=== PATIENT | male | born 1980 ===

== ENCOUNTER 2016-12-21 15:58 | Observation (INO) | payer OTHER ==
[2016-12-21] MEDS ORDERED: Sodium Chloride 0.9% 1,000 ML IV STA (16:14)
--- NOTE | 2016-12-21 16:21 | ED PDOC ---
HPI: Psych/Substance Abuse Time Seen by Provider: 12/21/16 16:04 Chief Complaint (Nursing): Psychiatric Evaluation Chief Complaint (Provider): Psychiatric Evaluation History Per: Family History/Exam Limitations: other (Unresponsive) Current Symptoms Are (Timing): Still Present Additional Complaint(s): 36 y/o male presents to the emergency department via ambulance after patient was found unresponsive. Patient was noted to have an argument with ex- girlfriend. Pill bottles with Aspirin and Xanax were found by patient although unclear if there was any ingestion. Patient was last seen at 04 am today walking dog. Of note, patient has history of previous suicide attempt. Past Medical History Reviewed: Historical Data, Nursing Documentation, Vital Signs Vital Signs: Last Vital Signs Temp 97.4 F L 12/21/16 15:59 Pulse 67 12/21/16 15:59 Resp 16 12/21/16 15:59 BP 122/85 12/21/16 15:59 Pulse Ox 99 12/21/16 15:59 - Medical History PMH: Hypercholesterolemia (no meds) Denies: Chronic Kidney Disease - Family History Family History: States: Unknown Family Hx - Immunization History Hx Influenza Vaccination: Yes (Last completed 1 year ago) - Home Medications Home Medications: Ambulatory Orders Medication Instructions Recorded Ciprofloxacin [Cipro] 500 mg PO Q12 #14 tab 02/20/15 Docusate Sodium [Colace] 100 mg PO BID #60 sgl 02/20/15 Metronidazole [Flagyl] 500 mg PO Q8 #14 tab 02/20/15 Sulfamethoxazole/Trimethoprim 1 tab PO BID #20 tab 09/20/15 [Bactrim DS 800 mg-160 mg] Albuterol HFA [Ventolin HFA 90 1 puff IH ASDIR #1 unit 03/23/16 mcg/actuation (8 g)] Azithromycin [Zithromax] 250 mg PO DAILY #6 tab 03/23/16 Benzonatate 200 mg PO TID PRN #20 capsule 03/23/16 - Allergies Allergies/Adverse Reactions: Allergies Allergy/AdvReac Type Severity Reaction Status Date / Time amoxicillin Allergy ANGIOEDEMA Verified 03/23/16 14:48 Penicillins Allergy ANGIOEDEMA Verified 03/23/16 14:48 Review of Systems Review Of Systems: ROS cannot be obtained secondary to pt's inabilty to answer questions. Physical Exam - Reviewed Nursing Documentation Reviewed: Yes Vital Signs Reviewed: Yes - Physical Exam Appears: Positive for: No Acute Distress Head Exam: Positive for: ATRAUMATIC, NORMAL INSPECTION, NORMOCEPHALIC Skin: Positive for: Normal Color, Warm, Dry Eye Exam: Positive for: PERRL, Other (Pt not responding to commands and unable to be EOMI) Neck: Positive for: Normal, Painless ROM, Supple Cardiovascular/Chest: Positive for: Regular Rate, Rhythm. Negative for: Murmur Respiratory: Positive for: Normal Breath Sounds. Negative for: Accessory Muscle Use, Respiratory Distress Gastrointestinal/Abdominal: Positive for: Normal Exam, Soft. Negative for: Tenderness Extremity: Positive for: Normal ROM (No sign of needle ramírez), Other (Tone equal b/l to the upper and lower extrm) Neurologic/Psych: Positive for: Other (Responsive to painful stimuli but not to verbal stimuli. Does not follow commands. ). Negative for: Alert, Oriented - Laboratory Results Result Diagrams: 12/21/16 16:43 12/21/16 16:43 - ECG O2 Sat by Pulse Oximetry: 99 (RA) Pulse Ox Interpretation: Normal Medical Decision Making Medical Decision Making: Time: 16:13 Initial impression: Unresponsive s/p possible ETOH or pill ingestion Initial plan: --Head w/o contrast CT --EKG --Acetaminophen --Alcohol Serum --CMP --Drug Screen, Urine --Salicylate --Urine DIP --CBC w/ diff --Prothrombin --Chest x-ray --Sodium Chloride 1L IV 200 mls/hr --AccuCheck --Dextrose 50 ml --Reevaluation Time: 17:05 Chest X-Ray FINDINGS: LUNGS: Poor inspiration with low lung volumes, crowded bronchovascular markings and mild bibasilar atelectasis. . PLEURA: No significant pleural effusion identified, no pneumothorax apparent. CARDIOVASCULAR: Heart size appears enlarged though this may in part be due to poor inspiration low lung volumes. OSSEOUS STRUCTURES: No significant abnormalities. VISUALIZED UPPER ABDOMEN: Normal. OTHER FINDINGS: None. IMPRESSION: Poor inspiration with low lung volumes, crowded bronchovascular markings and mild bibasilar atelectasis. . Time: 17:07 CT Head: FINDINGS: HEMORRHAGE: No acute parenchymal, subarachnoid or extra-axial hemorrhage. BRAIN: No mass effect or edema. No atrophy or chronic microvascular ischemic changes. VENTRICLES: Unremarkable. No hydrocephalus. CALVARIUM: Unremarkable. Question minor parasagittal occipital parietal scalp swelling. PARANASAL SINUSES: Unremarkable as visualized. No significant inflammatory changes. MASTOID AIR CELLS: Unremarkable as visualized. No inflammatory changes. OTHER FINDINGS: None. IMPRESSION: Normal CT of the Head. Time: 17:19 --Patient given Narcan 2 mg IV Scribe Attestation: Documented by Annabelle Kwong and Akiko Flowers, acting as scribe for Martin Jose MD. Provider Scribe Attestation: All medical record entries made by the Scribe were at my direction and personally dictated by me. I have reviewed the chart and agree that the record accurately reflects my personal performance of the history, physical exam, medical decision making, and the department course for this patient. I have also personally directed, reviewed, and agree with the discharge instructions and disposition. Disposition - Clinical Impression Clinical Impression: Benzodiazepine overdose - Patient ED Disposition Is Patient to be Admitted: Yes - Disposition Disposition Time: 18:12 Condition: FAIR Forms: [employer] ([place]) - Pt Status Changed To: Hospital Disposition Of: Observation - POA Present On Arrival: None
[2016-12-21] MEDS: Dextrose 50% SYRINGE Inj (50 ml) IVP ONE ×2 (16:30→16:40)
[2016-12-21] MEDS ORDERED: Dextrose 50% SYRINGE Inj (50 ml) ONE (16:47)
[2016-12-21 16:58] LABS: BASO % 0.5 % (0.0-2.0); EOS # 0.1 K/uL (0.0-0.7); EOS % 1.4 % (0.0-4.0); HEMATOCRIT 55.9 % (35.0-51.0); LYMPH # 1.2 K/uL (1.0-4.3); LYMPH % 26.8 % (20.0-40.0); MEAN CELL VOLUME 97.5 fl (80.0-94.0); MEAN CORPUSCULAR HEMOGLOBIN 32.7 pg (27.0-31.0); MEAN CORPUSCULAR HGB CONC 33.6 g/dL (33.0-37.0); MEAN PLATELET VOLUME 9.9 fl (7.2-11.7); MONO # 0.5 K/uL (0.0-0.8); MONO % 11.6 % (0.0-10.0); NEUT # 2.6 K/uL (1.8-7.0); NEUT % 59.7 % (50.0-75.0); NRBC % 0.3 % (0.0-0.0); RED CELL DISTRIBUTION WIDTH 13.3 % (11.5-14.5); WHITE BLOOD COUNT 4.4 K/uL (4.8-10.8)
--- NOTE | 2016-12-21 17:06 | RAD ---
HISTORY: cough COMPARISON: Comparison made with prior chest radiograph 11/21/2015 FINDINGS: LUNGS: Poor inspiration with low lung volumes, crowded bronchovascular markings and mild bibasilar atelectasis. . PLEURA: No significant pleural effusion identified, no pneumothorax apparent. CARDIOVASCULAR: Heart size appears enlarged though this may in part be due to poor inspiration low lung volumes. OSSEOUS STRUCTURES: No significant abnormalities. VISUALIZED UPPER ABDOMEN: Normal. OTHER FINDINGS: None. IMPRESSION: Poor inspiration with low lung volumes, crowded bronchovascular markings and mild bibasilar atelectasis. .
--- NOTE | 2016-12-21 17:09 | CT ---
PROCEDURE: CT scan of the brain dated 12/21/2016 HISTORY: r/o bleed COMPARISON: None available. TECHNIQUE: Axial computed tomography images were obtained through the head/brain without intravenous contrast. Radiation dose: Total exam DLP = 1411.32 mGy-cm. This CT exam was performed using one or more of the following dose reduction techniques: Automated exposure control, adjustment of the mA and/or kV according to patient size, and/or use of iterative reconstruction technique. FINDINGS: HEMORRHAGE: No acute parenchymal, subarachnoid or extra-axial hemorrhage. BRAIN: No mass effect or edema. No atrophy or chronic microvascular ischemic changes. VENTRICLES: Unremarkable. No hydrocephalus. CALVARIUM: Unremarkable. Question minor parasagittal occipital parietal scalp swelling. PARANASAL SINUSES: Unremarkable as visualized. No significant inflammatory changes. MASTOID AIR CELLS: Unremarkable as visualized. No inflammatory changes. OTHER FINDINGS: None. IMPRESSION: Normal CT of the Head.
[2016-12-21 17:11] LABS: ALCOHOL SERUM < 10 mg/dl (0-10); ALKALINE PHOSPHATASE 49 U/L (38-126); ALT/SGPT 28 U/L (21-72); AST/SGOT 19 U/L (17-59); BILIRUBIN,TOTAL 0.5 mg/dl (0.2-1.3); BLOOD UREA NITROGEN 6 mg/dl (9-20); CALCIUM 10.2 mg/dL (8.4-10.2); CARBON DIOXIDE 22 mmol/L (22-30); CHLORIDE 104 mmol/L (98-107); GFR AFRICAN-AMERICAN > 60; GLUCOSE,RANDOM 95 mg/dL (75-110); SODIUM 141 mmol/l (132-148); TOTAL PROTEIN 8.9 G/DL (6.3-8.2)
[2016-12-21 17:18] LABS: ALB/GLOB RATIO 1.3 (1.0-2.1)
[2016-12-21] MEDS ORDERED: Naloxone HCl 2mg/2ml syr IVP ONE (17:19)
[2016-12-21] MEDS ORDERED: Naloxone 0.4 mg/ml Inj (Adult) ONE (17:21)
[2016-12-21] MEDS ORDERED: Flumazenil 0.1 mg/ml Inj (5ml) IVP ONE (18:28)
--- NOTE | 2016-12-21 18:36 | CP.PCM.HP ---
History of Present Illness - History of Present Illness History of Present Illness: 36 yo male with no significant PMH brought in after he was found unresponsive beside empty bottles of Aspirin and Xanax. Patient had previous history of suicide attempt. Present on Admission - Present on Admission Any Indicators Present on Admission: No History of DVT/PE: No History of Uncontrolled Diabetes: No Urinary Catheter: No Decubitus Ulcer Present: No Review of Systems - Review of Systems Systems not reviewed;Unavailable: Altered Mental Status Past Patient History - Infectious Disease Hx of Infectious Diseases: None - Past Social History Smoking Status: Never Smoked - CARDIAC Hx Hypercholesterolemia: Yes (no meds) - PULMONARY Hx Respiratory Disorders: No - NEUROLOGICAL Hx Neurological Disorder: No - HEENT Hx HEENT Problems: No - RENAL Hx Chronic Kidney Disease: No - ENDOCRINE/METABOLIC Hx Endocrine Disorders: No - HEMATOLOGICAL/ONCOLOGICAL Hx Blood Disorders: No - INTEGUMENTARY Hx Dermatological Problems: No - MUSCULOSKELETAL/RHEUMATOLOGICAL Hx Back Pain: Yes (epidural x2) - GASTROINTESTINAL Other/Comment: stomach virus - GENITOURINARY/GYNECOLOGICAL Hx Genitourinary Disorders: No - PSYCHIATRIC Hx Substance Use: No - SURGICAL HISTORY Hx Surgeries: No - ANESTHESIA Hx Anesthesia: No Hx Anesthesia Reactions: No Meds Allergies/Adverse Reactions: Allergies Allergy/AdvReac Type Severity Reaction Status Date / Time amoxicillin Allergy ANGIOEDEMA Verified 03/23/16 14:48 Penicillins Allergy ANGIOEDEMA Verified 03/23/16 14:48 Physical Exam - Constitutional Appears: No Acute Distress - Head Exam Head Exam: ATRAUMATIC - Eye Exam Eye Exam: absent: Scleral icterus - ENT Exam ENT Exam: Mucous Membranes Moist - Neck Exam Neck exam: Negative for: Meningismus - Respiratory Exam Respiratory Exam: absent: Rhonchi, Wheezes, Respiratory Distress - Cardiovascular Exam Cardiovascular Exam: REGULAR RHYTHM, +S1, +S2 - GI/Abdominal Exam GI & Abdominal Exam: Soft. absent: Tenderness - Rectal Exam Rectal Exam: Deferred - Extremities Exam Extremities exam: Negative for: calf tenderness, pedal edema - Neurological Exam Neurological exam: Altered (very drowsy but arousable, unable to respond verbally) - Skin Skin Exam: Dry Results - Vital Signs Recent Vital Signs: Last Vital Signs Temp 97.4 F L 12/21/16 15:59 Pulse 67 12/21/16 15:59 Resp 16 12/21/16 15:59 BP 122/85 12/21/16 15:59 Pulse Ox 99 12/21/16 18:13 - Labs Result Diagrams: 12/21/16 16:43 12/21/16 16:43 Labs: Laboratory Results - last 24 hr 12/21/16 12/21/16 12/21/16 16:43 16:43 16:43 WBC 4.4 L RBC 5.74 Hgb 18.8 H Hct 55.9 H MCV 97.5 H D MCH 32.7 H MCHC 33.6 RDW 13.3 Plt Count 244 MPV 9.9 Neut % (Auto) 59.7 Lymph % (Auto) 26.8 [place] % (Auto) 11.6 H Eos % (Auto) 1.4 Baso % (Auto) 0.5 Neut # 2.6 Lymph # 1.2 [place] # 0.5 Eos # 0.1 Baso # 0.0 PT INR Sodium 141 Potassium 4.0 Chloride 104 Carbon Dioxide 22 Anion Gap 19 BUN 6 L Creatinine 0.8 Est GFR ( Amer) > 60 Est GFR (Non-Af Amer) > 60 Random Glucose 95 Calcium 10.2 Total Bilirubin 0.5 AST 19 ALT 28 Alkaline Phosphatase 49 Total Protein 8.9 H Albumin 5.1 H Globulin 3.8 Albumin/Globulin Ratio 1.3 Salicylates < 1.0 Urine Opiates Screen Urine Methadone Screen Acetaminophen < 10.0 L Ur Barbiturates Screen Ur Phencyclidine Scrn Ur Amphetamines Screen U Benzodiazepines Scrn U Oth Cocaine Metabols U Cannabinoids Screen Alcohol, Quantitative < 10 12/21/16 12/21/16 16:43 17:40 WBC RBC Hgb Hct MCV MCH MCHC RDW Plt Count MPV Neut % (Auto) Lymph % (Auto) [place] % (Auto) Eos % (Auto) Baso % (Auto) Neut # Lymph # [place] # Eos # Baso # PT 11.1 INR 1.1 Sodium Potassium Chloride Carbon Dioxide Anion Gap BUN Creatinine Est GFR ( Amer) Est GFR (Non-Af Amer) Random Glucose Calcium Total Bilirubin AST ALT Alkaline Phosphatase Total Protein Albumin Globulin Albumin/Globulin Ratio Salicylates Urine Opiates Screen Negative Urine Methadone Screen Negative Acetaminophen Ur Barbiturates Screen Negative Ur Phencyclidine Scrn Negative Ur Amphetamines Screen Negative U Benzodiazepines Scrn Positive H U Oth Cocaine Metabols Negative U Cannabinoids Screen Negative Alcohol, Quantitative Assessment & Plan (1) Benzodiazepine overdose Status: Acute Comment: place on observation in telemetry. continue 1 to 1 observation. continue IV hydration with NSS 200cc/hr. Flumazenil 0.2mg IV. psyche consult with Dr Shelton
[2016-12-21 18:59] LABS: ABG ALLEN TEST YES; ARTERIAL BLOOD GAS HCO3 24.1 mmol/L (21-28); ARTERIAL BLOOD GAS O2 CAPACITY 24.9 mL/dL (16-24); ARTERIAL BLOOD GAS PH 7.35 (7.35-7.45); ARTERIAL BLOOD GAS PO2 179 mm/Hg (80-100); ARTERIAL BLOOD HGB O2 SAT 92.4 % (95.0-98.0); CARBOXYHEMOGLOBIN 6.3 % (0.5-1.5); HHB -0.5 % (0.0-5.0); METHEMOGLOBIN 1.8 % (0.0-3.0)
[2016-12-21] MEDS: Sodium Chloride 0.9% 1,000 ML IV SCH (22:13)
[2016-12-22] MEDS: Sodium Chloride 0.9% 1,000 ML IV SCH ×3 (06:20→17:15)
[2016-12-22 07:02] LABS: BLOOD UREA NITROGEN 8 mg/dl (9-20); CALCIUM 9.5 mg/dL (8.4-10.2); CARBON DIOXIDE 26 mmol/L (22-30); CHLORIDE 106 mmol/L (98-107); GFR AFRICAN-AMERICAN > 60; GLUCOSE,RANDOM 80 mg/dL (75-110); SODIUM 140 mmol/l (132-148)
[2016-12-22 07:08] LABS: BASO % 0.3 % (0.0-2.0); EOS # 0.1 K/uL (0.0-0.7); EOS % 0.9 % (0.0-4.0); HEMATOCRIT 55.6 % (35.0-51.0); LYMPH # 1.3 K/uL (1.0-4.3); LYMPH % 21.3 % (20.0-40.0); MEAN CELL VOLUME 98.6 fl (80.0-94.0); MEAN CORPUSCULAR HEMOGLOBIN 32.8 pg (27.0-31.0); MEAN CORPUSCULAR HGB CONC 33.2 g/dL (33.0-37.0); MEAN PLATELET VOLUME 9.9 fl (7.2-11.7); MONO # 0.5 K/uL (0.0-0.8); MONO % 8.2 % (0.0-10.0); NEUT # 4.3 K/uL (1.8-7.0); NEUT % 69.3 % (50.0-75.0); NRBC % 0.2 % (0.0-0.0); RED CELL DISTRIBUTION WIDTH 13.2 % (11.5-14.5); WHITE BLOOD COUNT 6.2 K/uL (4.8-10.8)
--- NOTE | 2016-12-22 09:13 | CARD ---
APPROVED REPORT EKG Measurement Heart [id number] <Conclusion> Normal sinus rhythm Normal ECG
[2016-12-22 12:09] VITALS: TEMP 98.2; O2SAT 98
--- NOTE | 2016-12-22 13:32 | CP.PCM.CON ---
History of Present Illness - History of Present Illness History of Present Illness: psychiatry consult ordered by dr. alonso reason: overdose cc: it wasn't a suicide attempt hpi: pt brought in with suspected overdose attempt. his urine is positive for benzodiazapines. he is currently sedated and speech is soft and mumbled. he admits to feeling depressed and under stress. he is not forthcoming with information, but he denies that he tried to kill himself. he states "i heard xanax would make me "right" " he states he took his mother's xanax. he denies any a/v hallucinations. past psych: not forthcoming. denies previous admissions. 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 medical: per hospitalist mse: pt is somnolent, easily aroused. he makes poor eye contact and is evasive. mood is depressed/anxious. affect is contstricted. denies having suicidal thoughts, but apparently family is concerned that pt made od attempt. he denies a/v hallucinations. appears to have fair enough insight to seek treatment currently. assessment: depressive disorder unspecified with suspected suicide attempt recommendation: continue 1:1 supervision sign into 3 for further assessment/safety when he is medically cleared- appears to be too sedated to sign in at this time if pt refuses to sign, would have pt screened for involuntary [place] [facility] Past Patient History - Infectious Disease Hx of Infectious Diseases: None - Past Medical History & Family History Past Medical History?: Yes - Past Social History Smoking Status: Never Smoked - CARDIAC Hx Hypercholesterolemia: Yes (no meds) - PULMONARY Hx Respiratory Disorders: No - NEUROLOGICAL Hx Neurological Disorder: No - HEENT Hx HEENT Problems: No - RENAL Hx Chronic Kidney Disease: No - ENDOCRINE/METABOLIC Hx Endocrine Disorders: No - HEMATOLOGICAL/ONCOLOGICAL Hx Blood Disorders: No Hx AIDS: No Hx Human Immunodeficiency Virus (HIV): No - INTEGUMENTARY Hx Dermatological Problems: No - MUSCULOSKELETAL/RHEUMATOLOGICAL Hx Back Pain: Yes (epidural x2) Hx Falls: No (unknown) - GASTROINTESTINAL Other/Comment: stomach virus - GENITOURINARY/GYNECOLOGICAL Hx Genitourinary Disorders: No - PSYCHIATRIC Hx Substance Use: No - SURGICAL HISTORY Hx Surgeries: No - ANESTHESIA Hx Anesthesia: No Hx Anesthesia Reactions: No Hx Malignant Hyperthermia: No Meds Allergies/Adverse Reactions: Allergies Allergy/AdvReac Type Severity Reaction Status Date / Time amoxicillin Allergy ANGIOEDEMA Verified 03/23/16 14:48 Penicillins Allergy ANGIOEDEMA Verified 03/23/16 14:48 - Medications Medications: Current Medications Sodium Chloride (Sodium Chloride 0.9%) 1,000 mls @ 100 mls/hr IV .Q10H BRANDIE Stop: 12/22/16 21:08 Last Admin: 12/22/16 06:20 Dose: 100 mls/hr Results - Vital Signs Recent Vital Signs: Last Vital Signs Temp 98.2 F 12/22/16 12:08 Pulse 71 12/22/16 12:08 Resp 20 12/22/16 12:08 BP 125/74 12/22/16 12:08 Pulse Ox 98 12/22/16 12:08 - Labs Result Diagrams: 12/22/16 05:50 12/22/16 05:50 Labs: Laboratory Results - last 24 hr 12/21/16 12/22/16 12/22/16 18:50 05:50 05:50 WBC 6.2 RBC 5.64 Hgb 18.5 H Hct 55.6 H MCV 98.6 H MCH 32.8 H MCHC 33.2 RDW 13.2 Plt Count 222 MPV 9.9 Neut % (Auto) 69.3 Lymph % (Auto) 21.3 [place] % (Auto) 8.2 Eos % (Auto) 0.9 Baso % (Auto) 0.3 Neut # 4.3 Lymph # 1.3 [facility] # 0.5 Eos # 0.1 Baso # 0.0 pCO2 46 H pO2 179 H HCO3 24.1 ABG pH 7.35 ABG Total CO2 26.8 ABG O2 Saturation 100.5 H ABG O2 Content 25.0 H ABG Base Excess -0.8 ABG Hemoglobin 19.0 H ABG Carboxyhemoglobin 6.3 H POC ABG HHb (Measured) -0.5 L ABG Methemoglobin 1.8 ABG O2 Capacity 24.9 H [place] Test Yes A-a O2 Difference 6.0 Hgb O2 Saturation 92.4 L FiO2 34.0 Sodium 140 Potassium 4.0 Chloride 106 Carbon Dioxide 26 Anion Gap 12 BUN 8 L Creatinine 1.1 Est GFR ( Amer) > 60 Est GFR (Non-Af Amer) > 60 Random Glucose 80 Calcium 9.5
--- NOTE | 2016-12-22 16:36 | CP.PCM.DIS ---
Provider - Provider Date of Admission: 12/21/16 18:10 Attending physician: Basim Esposito MD Time Spent in preparation of Discharge (in minutes): 30 Hospital Course - Lab Results Lab Results: Most Recent Lab Values WBC 6.2 K/uL (4.8-10.8) 12/22/16 05:50 RBC 5.64 Mil/uL (4.40-5.90) 12/22/16 05:50 Hgb 18.5 g/dL (12.0-18.0) H 12/22/16 05:50 Hct 55.6 % (35.0-51.0) H 12/22/16 05:50 MCV 98.6 fl (80.0-94.0) H 12/22/16 05:50 MCH 32.8 pg (27.0-31.0) H 12/22/16 05:50 MCHC 33.2 g/dL (33.0-37.0) 12/22/16 05:50 RDW 13.2 % (11.5-14.5) 12/22/16 05:50 Plt Count 222 K/uL (130-400) 12/22/16 05:50 MPV 9.9 fl (7.2-11.7) 12/22/16 05:50 Neut % (Auto) 69.3 % (50.0-75.0) 12/22/16 05:50 Lymph % (Auto) 21.3 % (20.0-40.0) 12/22/16 05:50 [place] % (Auto) 8.2 % (0.0-10.0) 12/22/16 05:50 Eos % (Auto) 0.9 % (0.0-4.0) 12/22/16 05:50 Baso % (Auto) 0.3 % (0.0-2.0) 12/22/16 05:50 Neut # 4.3 K/uL (1.8-7.0) 12/22/16 05:50 Lymph # 1.3 K/uL (1.0-4.3) 12/22/16 05:50 [place] # 0.5 K/uL (0.0-0.8) 12/22/16 05:50 Eos # 0.1 K/uL (0.0-0.7) 12/22/16 05:50 Baso # 0.0 K/uL (0.0-0.2) 12/22/16 05:50 PT 11.1 Seconds (9.8-13.1) 12/21/16 16:43 INR 1.1 (0.9-1.2) 12/21/16 16:43 pCO2 46 mm/Hg (35-45) H 12/21/16 18:50 pO2 179 mm/Hg (80-100) H 12/21/16 18:50 HCO3 24.1 mmol/L (21-28) 12/21/16 18:50 ABG pH 7.35 (7.35-7.45) 12/21/16 18:50 ABG Total CO2 26.8 mmol/L (22-28) 12/21/16 18:50 ABG O2 Saturation 100.5 % (95-98) H 12/21/16 18:50 ABG O2 Content 25.0 ML/dL (15-23) H 12/21/16 18:50 ABG Base Excess -0.8 mmol/L (-2.0-3.0) 12/21/16 18:50 ABG Hemoglobin 19.0 g/dL (11.7-17.4) H 12/21/16 18:50 ABG Carboxyhemoglobin 6.3 % (0.5-1.5) H 12/21/16 18:50 POC ABG HHb (Measured) -0.5 % (0.0-5.0) L 12/21/16 18:50 ABG Methemoglobin 1.8 % (0.0-3.0) 12/21/16 18:50 ABG O2 Capacity 24.9 mL/dL (16-24) H 12/21/16 18:50 [place] Test Yes 12/21/16 18:50 A-a O2 Difference 6.0 mm/Hg 12/21/16 18:50 Hgb O2 Saturation 92.4 % (95.0-98.0) L 12/21/16 18:50 FiO2 34.0 % 12/21/16 18:50 Sodium 140 mmol/l (132-148) 12/22/16 05:50 Potassium 4.0 MMOL/L (3.6-5.0) 12/22/16 05:50 Chloride 106 mmol/L (98-107) 12/22/16 05:50 Carbon Dioxide 26 mmol/L (22-30) 12/22/16 05:50 Anion Gap 12 (10-20) 12/22/16 05:50 BUN 8 mg/dl (9-20) L 12/22/16 05:50 Creatinine 1.1 mg/dL (0.8-1.5) 12/22/16 05:50 Est GFR ( Amer) > 60 12/22/16 05:50 Est GFR (Non-Af Amer) > 60 12/22/16 05:50 POC Glucose (mg/dL) 149 mg/dL (65-110) H 12/21/16 17:03 Random Glucose 80 mg/dL (75-110) 12/22/16 05:50 Calcium 9.5 mg/dL (8.4-10.2) 12/22/16 05:50 Total Bilirubin 0.5 mg/dl (0.2-1.3) 12/21/16 16:43 AST 19 U/L (17-59) 12/21/16 16:43 ALT 28 U/L (21-72) 12/21/16 16:43 Alkaline Phosphatase 49 U/L (38-126) 12/21/16 16:43 Total Protein 8.9 G/DL (6.3-8.2) H 12/21/16 16:43 Albumin 5.1 g/dL (3.5-5.0) H 12/21/16 16:43 Globulin 3.8 gm/dL (2.2-3.9) 12/21/16 16:43 Albumin/Globulin Ratio 1.3 (1.0-2.1) 12/21/16 16:43 Salicylates < 1.0 mg/dl 12/21/16 16:43 Urine Opiates Screen Negative (NEGATIVE) 12/21/16 17:40 Urine Methadone Screen Negative (NEGATIVE) 12/21/16 17:40 Acetaminophen < 10.0 ug/ml (10.0-30.0) L 12/21/16 16:43 Ur Barbiturates Screen Negative (NEGATIVE) 12/21/16 17:40 Ur Phencyclidine Scrn Negative (NEGATIVE) 12/21/16 17:40 Ur Amphetamines Screen Negative (NEGATIVE) 12/21/16 17:40 U Benzodiazepines Scrn Positive (NEGATIVE) H 12/21/16 17:40 U Oth Cocaine Metabols Negative (NEGATIVE) 12/21/16 17:40 U Cannabinoids Screen Negative (NEGATIVE) 12/21/16 17:40 Alcohol, Quantitative < 10 mg/dl (0-10) 12/21/16 16:43 - Hospital Course Hospital Course: 36 yo male with no significant PMH brought in after he was found unresponsive beside empty bottles of Aspirin and Xanax. Patient had previous history of suicide attempt. Utox + benzos. Patient denies trying to hurt himself, but admits that he "just wanted to sleep" because he was upset. Patient has many stressors including bills and child support. Patient was evaluated by Psychiatry Consult Dr. Shelton, appreciated and followed. Patient is appropriate for voluntary admission to [facility]. It was clearly explained by both psychiatry as well as this author to the patient that he can either voluntarily be admitted to 3 for further evaluation, or that he will be screen by [facility] [place] will likely be involuntarily admitted there, as we are unable to safely discharge him home at this time. All questions were answered, and patient expressed full understanding. Patient in stable condition, and agreed to be admitted to [facility] for further evaluation, management, and treatment. HD stable, NAD. Discharge Exam - Head Exam Additional comments: Vitals stable and reviewed GEN: WDWN, alert, cooperative HEENT: NCAT, PERRL, EOMI Neck: supple, no lymphadenopathy CARDIO: +S1S2, RRR, NO M/R/G LUNG: CTAB, NO W/R/R ABD: soft, NT, ND, no masses, no HSM EXT: no edema, pedal pulses Neuro: AAOx3, Strength equal, bilateral UE/LE Psych: normal mood, normal affect Discharge Plan - Follow Up Plan Condition: FAIR Disposition: DISCHARGE TO PSYCH HOSPITAL
[2016-12-22 16:48] VITALS: BP 137/80; PULSE 70; RESP 18
[2016-12-22 20:25] LABS: URINE BILIRUBIN NEGATIVE (NEGATIVE); URINE BLOOD MODERATE (NEGATIVE); URINE COLOR YELLOW (YELLOW); URINE GLUCOSE (UA) NEG (Normal); URINE KETONE TRACE mg/dL (NEGATIVE); URINE LEUKOCYTE ESTERASE NEG Leu/uL (Negative); URINE PROTEIN NEGATIVE (NEGATIVE); URINE UROBILINOGEN 0.2-1.0 mg/dL (0.2-1.0); WBC URINE < 1 /hpf (0-5)
[2016-12-22 20:28] LABS: RBC URINE 18 /hpf (0-3)
== END 2016-12-22 17:37 ==
LOC: H.ER 15:58 → H.ERHOLD 18:10 → H.TEL 20:23
DX: T42.4X1A Poisoning by benzodiazepines, accidental (unintentional), initial encounter (principal); R40.20 Unspecified coma; Z88.0 Allergy status to penicillin
CPT/HCPCS: 36415; 70450; 71010; 80048; 80053; 80320; 80324; 80329; 80345; 80346; 80349; 80353; 80358; 80361; 81003; 82803; 82948; 83992; 85025; 85610; 92526; 92610; 93005; 96361; 96374; 96375; 99285; G0378; G8996; G8997; G8998; J7040

== ENCOUNTER 2016-12-22 18:13 | Inpatient (IN) | payer OTHER ==
[2016-12-22 18:28] VITALS: BMI 29.6
[2016-12-22] MEDS ORDERED: Magnesium Hydroxide Susp 30 ml UD PO PRN (18:41)
[2016-12-22] MEDS ORDERED: DiphenhydrAMINE 50 mg/ml Inj IM PRN (18:41)
[2016-12-22] MEDS ORDERED: Alum-Mag Hydrox-Simethicone Susp (30 mL) PO PRN (18:41)
--- NOTE | 2016-12-22 19:16 | PCM.BM ---
Treatment Plan Problems - Problems identified on initial assessmt Hopelessness/Helplessness Date Initiated: 12/22/16 Time Initiated: 19:15 Assessment reference: NA Status: Active Treatment assets and liabiliti Patient Assests: cooperative, negotiates basic needs, cognitively intact Patient Liabilities: financial problems, relationship conflicts - Milieu Protocol Maintain good personal hygiene: daily Encourage regular showers, daily Remind patient to perform daily oral care, daily Assist patient to perform ADL's Conduct patient checks and document Observation sheet: Q15 minutes Maintain personal safety: every shift Educate patient to report safety concerns to staff, every shift Monitor environment for contraband/sharps Medication safety: Monitor for expected outcome, potential side effects: every shift, Assess barriers to learning: every shift, Assess readiness for medication education: every shift
[2016-12-23 09:03] LABS: T4 6.14 ug/dl (5.5-11.0)
[2016-12-23 09:16] LABS: THYROID STIMULATING HORMONE 0.76 mIU/ML (0.46-4.68)
--- NOTE | 2016-12-23 13:13 | CP.PCM.CON ---
History of Present Illness - History of Present Illness History of Present Illness: Reason for Consult: per hospital protocol CC: overdose benzo HPI: 36 year old male discharged from for overdose on benzodiazepine, stating he took the wrong pills to sleep. Patient denies suicide attempt, and is very stressed about losing his job due to hospitalization. No other complaints at this time. HD stable, NAD. ROS: per HPI, 12 systems reviewed and negative PMH: denies PSH: denies FH: denies SH: denies tobacco, ETOH, IVDU Meds: as below Allergies: NKDA Vitals: reviewed and currently stable Exam: GEN: WDWN, alert, cooperative HEENT: NCAT, PERRL, EOMI NECK: supple, no JVD, no lymphadenopathy CARDIAC: +S1S2 RRR LUNG: CTAB No WRR ABD: SOFT NT ND BSX4 NO MASSES NO HSM EXT: +pedal pulses, equal strength NEURO: AAOx3 SKIN warm, dry PSYCH normal mood, normal affect Labs: reviewed from admission Assessment and Plan: Overdose on Benzo Management per psychiatry Past Patient History - Infectious Disease Hx of Infectious Diseases: None - Past Medical History & Family History Past Medical History?: Yes - Past Social History Smoking Status: Never Smoked - CARDIAC Hx Hypercholesterolemia: Yes (no meds) - PULMONARY Hx Respiratory Disorders: No - NEUROLOGICAL Hx Neurological Disorder: No - HEENT Hx HEENT Problems: No - RENAL Hx Chronic Kidney Disease: No - ENDOCRINE/METABOLIC Hx Endocrine Disorders: No - HEMATOLOGICAL/ONCOLOGICAL Hx Blood Disorders: No Hx AIDS: No Hx Human Immunodeficiency Virus (HIV): No - INTEGUMENTARY Hx Dermatological Problems: No - MUSCULOSKELETAL/RHEUMATOLOGICAL Hx Back Pain: Yes (epidural x2) Hx Falls: No (unknown) - GASTROINTESTINAL Other/Comment: stomach virus - GENITOURINARY/GYNECOLOGICAL Hx Genitourinary Disorders: No - PSYCHIATRIC Hx Substance Use: No - SURGICAL HISTORY Hx Surgeries: No - ANESTHESIA Hx Anesthesia: No Hx Anesthesia Reactions: No Hx Malignant Hyperthermia: No Meds Allergies/Adverse Reactions: Allergies Allergy/AdvReac Type Severity Reaction Status Date / Time amoxicillin Allergy ANGIOEDEMA Verified 03/23/16 14:48 Penicillins Allergy ANGIOEDEMA Verified 03/23/16 14:48 - Medications Medications: Current Medications Acetaminophen (Tylenol 325mg Tab) 650 mg PO Q4 PRN PRN Reason: Pain, moderate (4-7) Al Hydrox/Mg Hydrox/Simethicone (Maalox Plus 30 Ml) 30 ml PO Q4 PRN PRN Reason: Dyspepsia Diphenhydramine HCl (Benadryl) 50 mg IM Q6 PRN PRN Reason: Extrapyramidal S/S Unable PO Diphenhydramine HCl (Benadryl) 50 mg PO Q6 PRN PRN Reason: Extrapyramidal Symptoms Haloperidol (Haldol) 5 mg PO Q4 PRN PRN Reason: Agitation Haloperidol Lactate (Haldol) 5 mg IM Q4 PRN PRN Reason: Agitation, Unable to Take PO Lorazepam (Ativan) 2 mg IM Q4 PRN PRN Reason: Anxiety/Agitation,Unable PO Lorazepam (Ativan) 2 mg PO Q4 PRN PRN Reason: Anxiety/Agitation Magnesium Hydroxide (Milk Of Magnesia) 30 ml PO HS PRN PRN Reason: Constipation Results - Vital Signs Recent Vital Signs: Last Vital Signs Temp 97.9 F 12/23/16 09:00 Pulse Resp 16 12/23/16 09:00 BP 120/70 12/23/16 09:00 Pulse Ox - Labs Labs: Laboratory Results - last 24 hr 12/23/16 08:03 Triglycerides 214 H Cholesterol 227 H LDL Cholesterol Direct 134 H HDL Cholesterol 39 Thyroxine (T4) 6.14 TSH 3rd Generation 0.76
--- NOTE | 2016-12-23 18:14 | PCM.PSYCH ---
Initial Psychiatric Evaluation - Initial Psychiatric Evaluation Chief Complaint (in patient's own words): was in front of my house and then next thing I new police were there Patient's Reaction to Hospitalization: pt is voluntary History of Present Illness and Precipitating Events: pt presented to [facility] from [facility] after being brought in by police 2nd to changes in behavior and etoh. pt reports had had discussion with of 16 years (verbal denies physical agression), had been having a few beers with friends and police came, brought him to er. Current Medications: Active Medications Generic Name Dose Route Start Last Admin Trade Name Freq PRN Reason Stop Dose Admin Acetaminophen 650 mg 12/22/16 18:41 Tylenol 325mg Tab PO Q4 PRN Pain, moderate (4-7) Al Hydrox/Mg Hydrox/Simethicone 30 ml 12/22/16 18:41 Maalox Plus 30 Ml PO Q4 PRN Dyspepsia Diphenhydramine HCl 50 mg 12/22/16 18:41 Benadryl IM Q6 PRN Extrapyramidal S/S Unable PO Diphenhydramine HCl 50 mg 12/22/16 18:41 Benadryl PO Q6 PRN Extrapyramidal Symptoms Haloperidol 5 mg 12/22/16 18:41 Haldol PO Q4 PRN Agitation Haloperidol Lactate 5 mg 12/22/16 18:41 Haldol IM Q4 PRN Agitation, Unable to Take PO Lorazepam 2 mg 12/22/16 18:41 Ativan IM Q4 PRN Anxiety/Agitation,Unable PO Lorazepam 2 mg 12/22/16 18:41 Ativan PO Q4 PRN Anxiety/Agitation Magnesium Hydroxide 30 ml 12/22/16 18:41 Milk Of Magnesia PO HS PRN Constipation Past Psychiatric History - Past Psychiatric History Prior Professional Help: denies History of Abuse: denies History of ETOH/Drug Use: denies History of Family Illness: denies Pertinent Medical Hx (Current Medical&Sleep Prob, Allergies): Allergies Allergy/AdvReac Type Severity Reaction Status Date / Time amoxicillin Allergy ANGIOEDEMA Verified 03/23/16 14:48 Penicillins Allergy ANGIOEDEMA Verified 03/23/16 14:48 Unobtainable 12/21/16 Review of Systems - Psychiatric Psychiatric: Irritability Additional comments: reports was in context of etoh,. reports was having s/i because did not know what was going on when police came Mental Status Examination - Affect Affect: Constricted - Motor Activity Motor Activity: Psychomotor Retardation - Reliability in Providing Information Reliability in Providing Information: Fair - Speech Speech: Organized - Mood Additional comments: euthymic - Formal Thought Process Formal Thought Process: No Impairment - Obsessions/Compulsions Obsessions: No Compulsions: No - Cognitive Functions Orientation: Person, Place, Situation, Time Sensorium: Alert Judgement: Imparied, as evidence by: Other - Risk Risk: Suicidal - Strength & Assets Inventory Strength & Assets Inventory: Cooperative DSM 5 DX - DSM 5 DSM 5 Diagnosis: adjustment disorder mixed substance use etoh - Recommended/Plan of Treatment Treatment Recommendations and Plan of Treatment: admission per attending vital signs and clinical observation per protocol and per status hospitalist consult pt defer rx (standing at this time) prns per unit protocol discharge planning in progress Projected ELOS: 3-5 days Prognosis: guarded Discharge Plan and Discharge Criteria: guarded - Smoking Cessation Smoking Cessation Initiated: Yes
[2016-12-23 18:43] VITALS: TEMP 97.2
--- NOTE | 2016-12-24 13:44 | PCM.PYCHDC ---
Mental Status Examination - Mental Status Examination Orientation: Person, Place, Situation, Time Memory: Intact Mood: Other (euthymic) Affect: Broad Speech: Soft Attention: WNL Concentration: WNL Association: WNL Fund of Knowledge: WNL Formal Thought Process: No Impairment (improved) Description of patient's judgement and insight: pt was verbally agreeable to have family meeting with () and mother with the presence of this typewriter repairer and social studies department chair. pt. was able to discuss the context of taking non prescribed medications on top of drinking etoh -wanting to sleep and not wanting to end life. reflects along with family history of not be always able to communicate feelings/pt. family reflect on various issues including finances that have become stressful for pt.. pt. reports children and family as leverage. mother/ () report pt. to be a good father and wanting to do well for his family. pt./family discuss various treatment options and pt. requests to follow up with therapy on an outpatient basis. family is verbally agreeable and pt. is verbally agreeable to accept support. During meeting pt. was noted to take hands of family and was tearful when mother asked if he wanted to harm himself -pt. responded without hesitation "no"-mother responded "that is what I wanted to hear-he won't try anything or make a mistake like this again". () responded "I know he did not want to hurt himself-I have no problem with him being discharged today"-pt.s mother also said "I agree". Pt. was provided with information related to applying for [facility] per his and his family's request. Pt. was verbally agreeable to call [facility] and or [facility] mobile crisis if necessary-pt. was agree for this information to be provided to his family. Psychotic Thoughts and Behaviors: none Suicidal Ideation: No Current Homicidal Ideation?: No Discharge Summary - Discharge Note Reason for Hospitalization: pt is voluntary-was admitted via [facility] via [facility] after family called ems 2nd to change in mental status of pt. after pt. reported took mother's medication after drinking etoh in what pt reports as an attempt to sleep after not being able to sleep 2nd to stress. Pt. denies this as being an attempt to harm self. Psychiatric History (includes Medical, Family, Personal Hx): denies previous psychiatric history or treatment. pt. admits soc. etoh-CAGE Laboratory Data: Abnormal Lab Results 12/23/16 08:03 RPR Nonreactive Consultations:: List each consultation separately and include: 1. Reason for request. 2. Findings. 3. Follow-up Consultations: pt was seen by hospitalist Summary of Hospital Course include:: 1. Description of specific treatment plan utilized for patients during their course of treatmen. 2. Summarize the time- course for resolution of acute symptoms and/or regressed behaviors. 3. Describe issues identified and worked on during hospitalization. 4. Describe medication utilized. 5. Describe medical problems identified and treated. 6. Reassessment of suicide risk Summary of Hospital Course: pt presented to [facility] via [facility] after presenting via em[facility] after reportedly drinking after work, reportedly not realizing he had been drinking, took some of his mother's medications in an effort to sleep. Sleep reportedly was decreased 2nd to stress-denied this as being in the context of [employer]. 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 Pt. has three children , two of which are from the same mother (relationship many years) and a 5 month old from a 2nd female: both of which are from pt.. Pt. is originally from [place], grew up in the , completed high school, has worked at various jobs for varying amounts of time-with longest job being of several years. Pt. does not currently has insurance as it reportedly has lapsed. Pt. is currently staying with mother. Pt. denies previous psychiatric and medical history. Pt. denies having legal history. Pt. was seen and evaluated by hospitalist Pt. was noted to about in unit while admitted, did receive prn for sleep which he related to also being in hospital and wanting to see children. Pt. was free of notable agitation, denied desire to harm self or others. Pt. was noted to interact with staff and selct peers. Pt. was agreeable to have a family meeting and a family meeting was held consisting of pt., pt.'s mother and pt.'s () identified as "laura". Pt. during family meeting admitted that this was not an attempt to harmself, verbalized understanding that the combination of etoh and non prescribed medications could have led to respiratory arrest and or . Pt. was verbally agreeable to follow up with [facility] and that he would call for appt. on 12/24/16-family was verbally agreeable to assist/remind pt. to do so. Pt. reported family/children as leverage, family verbally admitted that they did not have any concerns for pt. returning home-nor did they express concern that this was an attempt to take his life and that he would not likely have done this to end his life. Pt. will be provided with the number to [facility] mobile crisis as well as 911. - Final Diagnosis (DSM 5) Condition upon Discharge: GOOD Disposition: HOME/ ROUTINE Follow-up Treatment Plan: pt to be discharged per attending md, provided with information for [facility] by staff, numbers to 911 and [facility] mobile crisis [phone] family meeting was held with pt.'s permission and pt was present with this typewriter repairer and loan manager. assessment was obtained-pt. appeared to be of minimal risk at time of discharge , this appeared to be error in judgment related to desire to sleep and taking non prescribed rx after drinking etoh-mother and current () both reported that they did not feel as though pt. was a risk to self or others, reported his family including his three children as leverage and was verbally agreeable to follow up at [facility] upon discharge. a review of sleep hygiene was provided. Pt. was verbally agreeable to have family remain present until appt. was made at [facility]. Pt. was discharge off of [facility] with the support of his family. No prescriptions were provided as pt. deferred need and that he wanted to follow up with a therapist. - Smoking Cessation Smoking Cessation Medication prescribed: No - Antipsychotic Medications Pt discharged on 2 or more routine antipsychotic medications: No
[2016-12-24 14:09] VITALS: BP 121/78; PULSE 60; RESP 16
== END 2016-12-24 14:14 | disposition home or self-care (01) | DRG 427 ==
LOC: H.PSYCH 18:41
PROVIDERS: ADMIT Psychiatry & Neurology Psychiatry; ATTEND Psychiatry & Neurology Psychiatry
DX: F43.20 Adjustment disorder, unspecified (principal); M54.9 Dorsalgia, unspecified; E78.00 Pure hypercholesterolemia, unspecified